=== PATIENT | male | born 1960 | race Caucasian/White ===

== ENCOUNTER 2023-04-18 14:29 | Outpatient (OUT) | payer BC, OTHER, SELFPAY | END 2023-04-18 14:30 | disposition home or self-care (01) | LOC: PST 14:30 | PROVIDERS: Visit Provider Surgery | DX: Z01.818 Encounter for other preprocedural examination (principal); Z12.11 Encounter for screening for malignant neoplasm of colon ==

== ENCOUNTER 2023-04-26 09:19 | Day surgery (SDC) | payer BC, SELFPAY ==
[2023-04-26 09:40] VITALS: BP 138/94; PULSE 81; RESP 18; TEMP 35.8; O2SAT 96; BMI 37.6
[2023-04-26 09:45] LABS: Glucometer 249 mg/dL (74-106)
[2023-04-26] MEDS: LACTATED RINGER'S SOLUTION 1,000 ML 50 ML IV (09:47)
--- NOTE | 2023-04-26 10:19 | PM.GSPRC ---
Date of procedure: 04/26/23 Indications for Procedure: screening for cancer Pre-op diagnosis: screening for cancer Post-op diagnosis: other (normal colon) Findings: normal colon Anesthesia: MAC Surgeon: Elver Lofton Procedure Summary: The patient was taken to the operating suite and placed in the left lateral position after being given IV conscious sedation as above. Rectal digital exam normal. No external? hemorrhoids noted. prostate was smooth slightly enlarged without nodules.The Olympus video colonoscope was then advanced under direct visualization into the rectum, sigmoid colon, descending colon, transverse colon, and ascending colon to the ileocecal valve which was visualized.?appendiceal lumen was visualized. There were no polyps, tumors, or diverticular disease seen. The scope was then slowly withdrawn with air being desufflated as the scope was withdrawn and again finding no abnormalities. There were no internal hemorrhoids or external hemorrhoids noted. The patient tolerated the procedure well and went to the recovery area in satisfactory condition. I would recommend repeat screening colonoscopy in ten years unless problems. Estimated blood loss (mL): 0 Specimens: none Complications: No Pathology: none sent Condition: stable Disposition: PACU
[2023-04-26 10:27] VITALS: BP 104/64; PULSE 69; RESP 16; O2SAT 93
[2023-04-26 10:40] VITALS: BP 98/62; PULSE 72; RESP 16; O2SAT 93
[2023-04-26 10:50] VITALS: BP 141/89; PULSE 79; RESP 16; O2SAT 93
--- NOTE | 2023-06-07 14:31 | PM.GSPRC ---
Date of procedure: 04/26/23 Indications for Procedure: screening for cancer Pre-op diagnosis: Screening for cancer Post-op diagnosis: other (normal colon) Procedure: colonosocpy Findings: normal colon Anesthesia: MAC Surgeon: Elver Lofton Procedure Summary: The patient was taken to the operating suite and placed in the left lateral position after being given IV conscious sedation as above. Rectal digital exam normal. No external? hemorrhoids noted. prostate was smooth slightly enlarged without nodules.The Olympus video colonoscope was then advanced under direct visualization into the rectum, sigmoid colon, descending colon, transverse colon, and ascending colon to the ileocecal valve which was visualized.?appendiceal lumen was visualized. There were no polyps, tumors, or diverticular disease seen. The scope was then slowly withdrawn with air being desufflated as the scope was withdrawn and again finding no abnormalities. There were no internal hemorrhoids or external hemorrhoids noted. The patient tolerated the procedure well and went to the recovery area in satisfactory condition. I would recommend repeat screening colonoscopy in ten years unless problems. Estimated blood loss (mL): 0 Specimens: none Complications: No Pathology: none sent Condition: stable Disposition: PACU
== END 2023-04-26 11:15 | disposition home or self-care (01) ==
PROVIDERS: Visit Provider Surgery
PROC: (CPT 45378; principal; 2023-04-26 10:50)
DX: Z12.11 Encounter for screening for malignant neoplasm of colon (principal); E11.9 Type 2 diabetes mellitus without complications; I10 Essential (primary) hypertension; E78.00 Pure hypercholesterolemia, unspecified; F41.9 Anxiety disorder, unspecified; Z79.899 Other long term (current) drug therapy; Z79.84 Long term (current) use of oral hypoglycemic drugs; F17.290 Nicotine dependence, other tobacco product, uncomplicated; E66.9 Obesity, unspecified; Z68.37 Body mass index [BMI] 37.0-37.9, adult
CPT/HCPCS: 45378; 36415; 82948; J2704